=== PATIENT | female | born 1950 | race African-American/Black ===

== ENCOUNTER → 2018-07-18 | Outpatient (CLI) | payer MEDICARE ==
[~2018-07-18] MED LIST: AMLO5TAB88 PO; ECOTRIN; ESOM40CA PO; ESTR0.6264 PO; FERR325T23; LORA1TAB PO; LORSARTAN; PRAS10TA6; SERT-112 PO; [UNRECOGNIZED DRUG - CODE] PO
== END | disposition home or self-care (01) ==
LOC: LAB 16:14
PROVIDERS: ATTEND Internal Medicine
DX: M25.461 Effusion, right knee (principal)
CPT/HCPCS: 89060

== ENCOUNTER 2023-04-01 23:59 | Emergency (ER) | payer MEDICARE, OTHER ==
[~2023-04-01] VITALS: Ht 152.4 cm; Wt 71.5 kg
[2023-04-02 00:11] VITALS: O2SAT 98
[2023-04-02 01:22] LABS: CHLORIDE 105 mEq/L (98-107); INDEX HEMOLYSI 1 (1-3); INDEX ICTERIC 1 (1-4); INDEX LIPEMIC 1 (1-3); POTASSIUM 3.3 mEq/L (3.5-5.1); SODIUM 139 mEq/L (136-145)
[2023-04-02 01:31] LABS: ALANINE AMINOTRANSFERASE 39 IU/L (13-61); ALBUMIN 3.4 g/dL (3.4-5.0); ASPARTATE AMINOTRANSFERASE 33 IU/L (15-37); BILIRUBIN TOTAL 0.5 mg/dL (0.1-1.0); CALCIUM 8.6 mg/dL (8.5-10.1); CARBON DIOXIDE 25 mEq/L (21-32); CREATININE 1.1 mg/dL (0.6-1.3); GLUCOSE 130 mg/dL (70-105); PROTEIN TOTAL 7.7 g/dL (6.0-8.3); TROPONIN I HIGH SENSITIVITY 14 ng/L (<54); UREA NITROGEN BLOOD 18 mg/dL (7-21)
[2023-04-02 01:33] LABS: BASOPHILS % 0.4 % (0.0-2.0); HEMATOCRIT. 36.9 % (36.0-48.0); HEMOGLOBIN. 12.4 g/dL (12.0-16.0); MEAN CORPUSCULAR HEMOGLOBIN 27.3 pg (28.0-32.0); MEAN CORPUSCULAR HGB CONC 33.5 g/dL (31.0-37.0); MEAN CORPUSCULAR VOLUME 81.4 fL (81.0-99.0); MEAN PLATELET VOLUME 9.5 fl (7.4-10.4); MONOCYTES % 8.8 % (2.0-8.0); NEUTROPHILS % 63.8 % (40.0-76.0); PLATELET 196 x1000/uL (130-400); RED BLOOD CELL COUNT 4.54 mill/uL (4.2-5.4); RED CELL DISTRIBUTION WIDTH 14.2 % (11.6-14.6); WHITE BLOOD COUNT 7.1 x1000/uL (4.5-11.0)
[2023-04-02] MEDS ORDERED: IMOD MT (02:07)
[2023-04-02 02:37] VITALS: BP 148/66; PULSE 82; RESP 16; TEMP 98.8
== END 2023-04-02 02:39 | disposition home or self-care (01) ==
LOC: ER 04-02 01:20
DX: U07.1 COVID-19 (principal); I10 Essential (primary) hypertension; E78.00 Pure hypercholesterolemia, unspecified; Z88.5 Allergy status to narcotic agent; Z79.899 Other long term (current) drug therapy
CPT/HCPCS: 36415; 71045; 80053; 84484; 85025; 93005; 99285

== ENCOUNTER 2024-09-02 07:59 | Inpatient (IN) | payer OTHER, MEDICARE ==
[~2024-09-02] VITALS: Ht 152.4 cm; Wt 72.3 kg
[~2024-09-02 07:59] MED LIST changes: +IMOD MT
[2024-09-02 08:01] VITALS: O2SAT 98
[2024-09-02 09:02] LABS: BASOPHILS % 0.6 % (0.0-2.0); EOSINOPHILS % 3.7 % (0.0-5.0); HEMATOCRIT. 36.3 % (36.0-48.0); HEMOGLOBIN. 11.5 g/dL (12.0-16.0); LYMPHOCYTES % 27.6 % (20.0-50.0); MEAN CORPUSCULAR HEMOGLOBIN 26.5 pg (28.0-32.0); MEAN CORPUSCULAR HGB CONC 31.8 g/dL (31.0-37.0); MEAN CORPUSCULAR VOLUME 83.3 fL (81.0-99.0); MEAN PLATELET VOLUME 9.8 fl (7.4-10.4); NEUTROPHILS % 58.1 % (40.0-76.0); PLATELET 198 x1000/uL (130-400); RED BLOOD CELL COUNT 4.35 mill/uL (4.2-5.4); RED CELL DISTRIBUTION WIDTH 14.7 % (11.6-14.6); WHITE BLOOD COUNT 6.6 x1000/uL (4.5-11.0)
[2024-09-02 09:16] LABS: CHLORIDE 107 mEq/L (98-107)
[2024-09-02 09:17] LABS: CARBON DIOXIDE 29 mEq/L (21-32); POTASSIUM 3.7 mEq/L (3.5-5.1); SODIUM 142 mEq/L (136-145)
[2024-09-02 09:22] LABS: CREATININE 0.9 mg/dL (0.6-1.0); GLUCOSE 114 mg/dL (70-105)
[2024-09-02 09:23] LABS: TROPONIN I HIGH SENSITIVITY 6 ng/L (3.0-34); UREA NITROGEN BLOOD 17 mg/dL (9-23)
[2024-09-02 09:24] LABS: ALANINE AMINOTRANSFERASE 19 IU/L (10-49); ALBUMIN 3.8 g/dL (3.2-4.8); ASPARTATE AMINOTRANSFERASE 22 IU/L (<34)
[2024-09-02 09:25] LABS: BILIRUBIN TOTAL 0.5 mg/dL (0.1-1.0); PROTEIN TOTAL 6.9 g/dL (6.0-8.3)
[2024-09-02 16:00] VITALS: BP 157/80; PULSE 72; RESP 18; TEMP 36.3; O2SAT 98
[2024-09-02 17:36] VITALS: BP 157/80; PULSE 72; RESP 18; TEMP 36.4
[2024-09-02 20:00] VITALS: BP 157/68; PULSE 72; RESP 17; TEMP 36.8; O2SAT 97
[2024-09-02] MEDS ORDERED: ACETAMINOPHEN 325MG TABLET PO PRN (20:30)
[2024-09-02] MEDS ORDERED: HYDROCODONE/ACETAMINOPHEN 5/325MG TABLET PO PRN (20:30)
[2024-09-02] MEDS ORDERED: CLONIDINE 0.1MG TABLET PO PRN (20:30)
[2024-09-02] MEDS ORDERED: ONDANSETRON HCL 4MG/2ML INJ IV PRN (20:30)
[2024-09-02] MEDS: AMLODIPINE 5MG TABLET PO SCH (21:25)
[2024-09-03] VITALS: BP 153/71; PULSE 78; RESP 18; TEMP 36.6; O2SAT 97
[2024-09-03 00:47] LABS: TROPONIN I HIGH SENSITIVITY 8 ng/L (3.0-34)
[2024-09-03 04:00] VITALS: BP 132/69; PULSE 82; RESP 18; TEMP 36.4; O2SAT 96
[2024-09-03] MEDS ORDERED: DEXTROSE 50% WATER 50ML SYRINGE IV PRN (04:15)
[2024-09-03] MEDS: BLOOD SUGAR DIAGNOSTIC STRIP TEST SCH (06:56)
[2024-09-03] MEDS: INSULIN LISPRO 100 UNITS/ML SUBCUT SCH (06:56)
[2024-09-03 08:00] VITALS: BP 151/73; PULSE 68; RESP 18; TEMP 36.7; O2SAT 96
[2024-09-03 08:35] LABS: BASOPHILS % 0.9 % (0.0-2.0); CHLORIDE 105 mEq/L (98-107); EOSINOPHILS % 4.1 % (0.0-5.0); HEMATOCRIT. 40.2 % (36.0-48.0); HEMOGLOBIN. 12.8 g/dL (12.0-16.0); LYMPHOCYTES % 33.7 % (20.0-50.0); MEAN CORPUSCULAR HEMOGLOBIN 26.2 pg (28.0-32.0); MEAN CORPUSCULAR HGB CONC 31.9 g/dL (31.0-37.0); MEAN CORPUSCULAR VOLUME 82.2 fL (81.0-99.0); MEAN PLATELET VOLUME 9.8 fl (7.4-10.4); MONOCYTES % 7.9 % (2.0-8.0); NEUTROPHILS % 53.4 % (40.0-76.0); PLATELET 211 x1000/uL (130-400); POTASSIUM 4.3 mEq/L (3.5-5.1); RED BLOOD CELL COUNT 4.89 mill/uL (4.2-5.4); RED CELL DISTRIBUTION WIDTH 14.7 % (11.6-14.6); SODIUM 141 mEq/L (136-145); WHITE BLOOD COUNT 6.7 x1000/uL (4.5-11.0)
[2024-09-03] MEDS: FUROSEMIDE 40MG/4ML VIAL IV SCH (08:35)
[2024-09-03] MEDS: ENOXAPARIN 40MG/0.4ML SYR SUBCUT SCH (08:35)
[2024-09-03 08:36] LABS: CALCIUM 9.2 mg/dL (8.7-10.4); CARBON DIOXIDE 29 mEq/L (21-32)
[2024-09-03] MEDS: ASPIRIN 81MG EC TABLET PO SCH (08:36)
[2024-09-03] MEDS: LOSARTAN 100 MG TABLET PO SCH (08:39)
[2024-09-03 08:41] LABS: CREATININE 0.9 mg/dL (0.6-1.0); GLUCOSE 105 mg/dL (70-105); TRIGLYCERIDE 153 mg/dL (0-150); TROPONIN I HIGH SENSITIVITY 6 ng/L (3.0-34); UREA NITROGEN BLOOD 14 mg/dL (9-23)
[2024-09-03 08:42] LABS: LDL CHOLESTEROL 103 mg/dL (5-100)
[2024-09-03 08:43] LABS: CHOLESTEROL 181 mg/dL (<200); HDL CHOLESTEROL 41 mg/dL (>65)
[2024-09-03 08:44] LABS: THYROID STIMULATING HORMONE 1.48 uIU/mL (0.55-4.78)
[2024-09-03 08:45] LABS: T4 FREE 1.23 ng/dL (0.89-1.76)
[2024-09-03] MEDS: CLONIDINE 0.2MG TABLET PO SCH (17:00)
[2024-09-03] MEDS: EMPAGLIFLOZIN 10MG TABLET PO SCH (17:35)
[2024-09-03 17:53] VITALS: PULSE 68; RESP 20; TEMP 36.8; O2SAT 95
[2024-09-03 20:00] VITALS: BP 146/70; PULSE 74; RESP 16; TEMP 36.8; O2SAT 97
[2024-09-03] MEDS: CLONIDINE 0.2MG TABLET PO NR (22:28)
[2024-09-04] VITALS: BP 130/67; PULSE 71; RESP 18; TEMP 36.2; O2SAT 98
[2024-09-04 04:00] VITALS: BP 123/65; PULSE 74; RESP 18; TEMP 36.3; O2SAT 99
[2024-09-04 07:10] LABS: BASOPHILS % 0.7 % (0.0-2.0); EOSINOPHILS % 3.8 % (0.0-5.0); HEMATOCRIT. 37.5 % (36.0-48.0); HEMOGLOBIN. 11.9 g/dL (12.0-16.0); LYMPHOCYTES % 29.6 % (20.0-50.0); MEAN CORPUSCULAR HEMOGLOBIN 25.7 pg (28.0-32.0); MEAN CORPUSCULAR HGB CONC 31.7 g/dL (31.0-37.0); MEAN CORPUSCULAR VOLUME 80.9 fL (81.0-99.0); MEAN PLATELET VOLUME 9.5 fl (7.4-10.4); MONOCYTES % 9.6 % (2.0-8.0); NEUTROPHILS % 56.3 % (40.0-76.0); PLATELET 202 x1000/uL (130-400); RED BLOOD CELL COUNT 4.63 mill/uL (4.2-5.4); RED CELL DISTRIBUTION WIDTH 15.2 % (11.6-14.6); WHITE BLOOD COUNT 6.8 x1000/uL (4.5-11.0)
[2024-09-04 07:32] LABS: CARBON DIOXIDE 29 mEq/L (21-32); CHLORIDE 105 mEq/L (98-107); POTASSIUM 3.9 mEq/L (3.5-5.1); SODIUM 141 mEq/L (136-145)
[2024-09-04 07:34] LABS: CALCIUM 8.9 mg/dL (8.7-10.4)
[2024-09-04 07:38] LABS: GLUCOSE 103 mg/dL (70-105); TROPONIN I HIGH SENSITIVITY 6 ng/L (3.0-34)
[2024-09-04 07:39] LABS: UREA NITROGEN BLOOD 18 mg/dL (9-23)
[2024-09-04 08:00] VITALS: PULSE 72; RESP 18; TEMP 36.4; O2SAT 98
[2024-09-04] MEDS: SODIUM CHLORIDE 0.45% 500 ML IV ONE (11:45)
[2024-09-04 12:00] VITALS: BP 145/66; PULSE 76; RESP 16; TEMP 36.3; O2SAT 98
[2024-09-04] MEDS ORDERED: IODIXANOL 320MG/ML 100 ML BOTTLE IV ONE (12:33)
[2024-09-04] MEDS ORDERED: LIDOCAINE HCL 1% 20ML VIAL ONE (12:33)
[2024-09-04] MEDS ORDERED: HEPARIN 1000 UNITS/ML 10ML ONE (12:33)
[2024-09-04] MEDS ORDERED: ASPIRIN/SOD BICARB/CITRIC ACID 324MG TAB EFF ONE (12:35)
[2024-09-04 12:39] LABS: PROTHROMBIN TIME 11.1 sec (9.6-11.0)
[2024-09-04] MEDS ORDERED: MIDAZOLAM HCL 2 MG/2 ML VIAL ONE (13:03)
[2024-09-04] MEDS ORDERED: FENTANYL CITRATE/PF 50MCG/ML 2ML VIAL ONE (13:04)
[2024-09-04] MEDS ORDERED: ONDANSETRON HCL 4MG/2ML INJ IV PRN (14:00)
[2024-09-04] MEDS ORDERED: ATROPINE SULFATE 1MG/10ML SYR IV PRN (14:00)
[2024-09-04] MEDS ORDERED: MORPHINE SULFATE 2 MG/ML INJ (NOT FOR IM USE) IV PRN (14:00)
[2024-09-04] MEDS ORDERED: ACETAMINOPHEN 325MG TABLET PO PRN (14:00)
[2024-09-04] MEDS ORDERED: NALOXONE HCL 0.4MG/ML VIAL IV PRN (14:00)
[2024-09-04] MEDS: SODIUM CHLORIDE 0.45% 1,000 ML IV ONE (14:47)
[2024-09-04 16:00] VITALS: BP 140/72; PULSE 82; RESP 18; TEMP 36.7; O2SAT 97
[2024-09-04 16:17] LABS: HEMOGLOBIN 12.1 g/dL (12.0-16.0)
[2024-09-04 20:00] VITALS: BP 139/61; RESP 18; TEMP 36.2; O2SAT 98
[2024-09-04] MEDS: CLONIDINE 0.2MG TABLET PO SCH (21:20)
[2024-09-05] VITALS: BP 100/50; PULSE 78; RESP 18; TEMP 36.3; O2SAT 99
[2024-09-05 04:00] VITALS: BP 106/64; PULSE 81; RESP 19; TEMP 36.2; O2SAT 98
[2024-09-05 08:00] VITALS: BP 107/56; PULSE 67; RESP 16; TEMP 36.3; O2SAT 98
[2024-09-05 12:00] VITALS: BP 107/56; PULSE 67; RESP 16; TEMP 36.3; O2SAT 98
[2024-09-05 16:00] VITALS: BP 107/83; PULSE 69; RESP 18; TEMP 36.4; O2SAT 98
== END 2024-09-05 18:06 | disposition home or self-care (01) | DRG 287 ==
LOC: ER 07:59 → 5WST 10:54 → EDBEDREQ 10:56 → EDBEDREQTM 10:56
PROVIDERS: ADMIT Internal Medicine; ATTEND Internal Medicine
PROC: 4A023N7 Measurement of Cardiac Sampling and Pressure, Left Heart, Percutaneous Approach (ICD-10-PCS; principal; 2024-09-04)
PROC: B211YZZ Fluoroscopy of Multiple Coronary Arteries using Other Contrast (ICD-10-PCS; 2024-09-04)
PROC: B212YZZ Fluoroscopy of Single Coronary Artery Bypass Graft using Other Contrast (ICD-10-PCS; 2024-09-04)
DX: I25.10 Atherosclerotic heart disease of native coronary artery without angina pectoris (principal); I13.0 Hypertensive heart and chronic kidney disease with heart failure and stage 1 through stage 4 chronic kidney disease, or unspecified chronic kidney disease; J44.9 Chronic obstructive pulmonary disease, unspecified; N18.2 Chronic kidney disease, stage 2 (mild); E11.22 Type 2 diabetes mellitus with diabetic chronic kidney disease; E78.00 Pure hypercholesterolemia, unspecified; I50.9 Heart failure, unspecified; Z96.659 Presence of unspecified artificial knee joint; Z95.1 Presence of aortocoronary bypass graft; Z79.82 Long term (current) use of aspirin; Z79.84 Long term (current) use of oral hypoglycemic drugs; Z79.899 Other long term (current) drug therapy; Z88.5 Allergy status to narcotic agent; Z95.5 Presence of coronary angioplasty implant and graft
CPT/HCPCS: 36415; 71045; 80048; 80053; 80061; 82962; 83036; 84439; 84443; 84484; 85014; 85018; 85025; 85379; 93005; 93459; 99285; A4606; C1769; C1887; C1893; J1644; J1650; J1940; J2250; J3010; J3490; Q9967